=== PATIENT | male | born 1945 | race Hispanic/Latino ===

== ENCOUNTER → 2020-11-15 | Outpatient (CLI) | payer MEDICARE | END | disposition home or self-care (01) | LOC: SHCH 10:00 | PROVIDERS: ATTEND Internal Medicine | DX: I70.213 Atherosclerosis of native arteries of extremities with intermittent claudication, bilateral legs (principal) | CPT/HCPCS: 93922 ==

== ENCOUNTER 2021-10-15 11:27 | Inpatient (IN) | payer MEDICARE ==
[~2021-10-15] VITALS: Ht 180.3 cm; Wt 91.0 kg
[2021-10-15 13:17] LABS: BASOPHILS % (AUTO) 1.8 % (0.0-5.0); EOSINOPHILS % (AUTO) 3.9 % (0.0-8.0); HEMATOCRIT 39.5 % (42-54); LYMPHOCYTES % (AUTO) 16.2 % (21.0-51.0); MEAN CORPUSCULAR HEMOGLOBIN 29.5 pg (27.0-33.0); MEAN CORPUSCULAR HGB CONC 31.1 g/dL (32.0-36.0); MEAN CORPUSCULAR VOLUME 94.7 fL (79-99); MONOCYTES % (AUTO) 7.6 % (3.0-13.0); NEUTROPHILS % (AUTO) 70.1 % (40.0-77.0); PLATELET COUNT (AUTO) 188 K/uL (130-400); RED BLOOD CELL COUNT(AUTO) 4.17 MIL/uL (4.50-6.20); WHITE BLOOD COUNT (AUTO) 5.7 K/uL (4.8-10.8)
[2021-10-15 13:28] LABS: POTASSIUM 4.6 mmol/L (3.5-5.1)
[2021-10-15 13:42] LABS: ALBUMIN 2.3 g/dL (3.5-5.0); BILIRUBIN,TOTAL 0.6 mg/dL (0.2-1.0); TOTAL PROTEIN, SERUM 6.9 g/dL (6.0-8.3)
[2021-10-15] MEDS ORDERED: LIDOCAINE HCL-MPF 1% 2ML VIAL ONE (13:43)
[2021-10-15] MEDS ORDERED: CEFTRIAXONE 1G VIAL IM ONE (14:00)
[2021-10-15] MEDS ORDERED: FUROSEMIDE 40 MG TABLET PO ONE (14:00)
[2021-10-15] MEDS ORDERED: BUMETANIDE 1MG/4ML VIAL IVP SCH (16:30)
[2021-10-15] MEDS ORDERED: POTASSIUM CHLORIDE 20MEQ/100ML 100 ML IV PRN ×2 (17:30)
[2021-10-15] MEDS ORDERED: ONDANSETRON 4MG INJ IVP PRN (17:30)
[2021-10-15] MEDS ORDERED: DOCUSATE SODIUM 100 MG CAP PO PRN (17:30)
[2021-10-15] MEDS ORDERED: ALBUTEROL 0.083% 2.5 MG/3 ML INH IH PRN (17:30)
[2021-10-15] MEDS ORDERED: CLONIDINE HCL 0.1 MG TABLET PO PRN ×2 (17:30)
[2021-10-15] MEDS ORDERED: LIDOCAINE HCL-MPF 1% 2ML VIAL IV PRN ×2 (17:30)
[2021-10-15] MEDS ORDERED: ACETAMINOPHEN 650 MG SUPPOSITORY RC PRN (17:30)
[2021-10-15 18:26] LABS: ABG BASE EXCESS -2.7 mmol/L (-2.0-3.0); ABG HCO3 20.6 mmol/L (21.0-28.0); ABG OXYGEN SATURATION 97.2 % (95.0-99.0); ABG PCO2 32 mmHg (35-48)
[2021-10-15 18:39] LABS: APPEARANCE,URINE Clear (CLEAR); BILIRUBIN,URINE Negative (NEGATIVE); COLOR,URINE Yellow (YELLOW); GLUCOSE, URINE (UA) Negative (NEGATIVE); KETONES,URINE Negative (NEGATIVE); LEUKOCYTE ESTERASE ,URINE Trace (NEGATIVE); NITRATE,URINE Negative (NEGATIVE); OCCULT BLOOD,URINE Small (NEGATIVE); PH,URINE 5.5 (5.0-8.0); PROTEIN,URINE 300 mg/dL (NEGATIVE); UROBILINOGEN,URINE 0.2 mg/dL (0.2-1.0)
[2021-10-15 18:51] LABS: BACTERIA,URINE Rare /HPF (None Seen); RBC,URINE 0-1 /HPF (0-1); SQUAMOUS EPITHELIAL CELL,UR Few /HPF (0-2)
[2021-10-15 18:52] LABS: HYALINE CASTS, URINE 0-1 /LPF (0-1 /LPF)
[2021-10-15] MEDS: FUROSEMIDE 40MG VIAL IV SCH (18:55)
[2021-10-15] MEDS: INSULIN HUMULIN R 100 UNIT/ML 3ML SQ SCH (20:56)
[2021-10-16 02:12] LABS: AMPHET/METH SCREEN,URINE NEGATIVE (NEGATIVE); BARBITURATE SCREEN, URINE NEGATIVE (NEGATIVE); BENZODIAZEPINES SCREEN,URINE NEGATIVE (NEGATIVE); CANNABINOID SCREEN,URINE NEGATIVE (NEGATIVE); COCAINE SCREEN,URINE POSITIVE (NEGATIVE); OPIATE SCREEN,URINE NEGATIVE (NEGATIVE); PHENCYCLIDINE SCREEN,URINE NEGATIVE (NEGATIVE)
[2021-10-16] MEDS: FUROSEMIDE 40MG VIAL IV SCH ×3 (02:16→16:44)
[2021-10-16 07:15] LABS: HEMATOCRIT 39.1 % (42-54); MEAN CORPUSCULAR HEMOGLOBIN 29.2 pg (27.0-33.0); MEAN CORPUSCULAR HGB CONC 31.2 g/dL (32.0-36.0); MEAN CORPUSCULAR VOLUME 93.5 fL (79-99); RED BLOOD CELL COUNT(AUTO) 4.18 MIL/uL (4.50-6.20); WHITE BLOOD COUNT (AUTO) 6.6 K/uL (4.8-10.8)
[2021-10-16 07:23] LABS: HEMOGLOBIN A1C 7.6 % (4.0-6.0)
[2021-10-16] MEDS: INSULIN HUMULIN R 100 UNIT/ML 3ML SQ SCH ×4 (07:30→20:14)
[2021-10-16 07:36] LABS: CREATININE 1.1 mg/dL (0.5-1.5); MAGNESIUM 1.5 mg/dL (1.80-2.40); PHOSPHORUS 3.3 mg/dL (2.5-4.9); POTASSIUM 3.5 mmol/L (3.5-5.1); THYROID STIMULATING HORMONE 40.86 uIU/mL (0.36-3.74)
[2021-10-16 09:00] VITALS: BP 136/91
[2021-10-16] MEDS ORDERED: MAGNESIUM 2GM PREMIX 50ML 50 ML IV PRN ×2 (09:00→11:00)
[2021-10-16] MEDS ORDERED: CLINDAMYCIN IVPB 300MG/50ML 50 ML IV SCH ×2 (09:00→20:00)
[2021-10-16] MEDS: POLYETHYLENE GLYCOL 3350 17 GM POWD.PACK PO SCH (09:00)
[2021-10-16] MEDS: ASPIRIN 81MG CHEW TAB PO SCH (09:34)
[2021-10-16] MEDS: PANTOPRAZOLE 40 MG TAB DR PO SCH (09:34)
[2021-10-16] MEDS: ACETAMINOPHEN 325 MG TAB PO PRN (10:08)
[2021-10-16] MEDS ORDERED: LEVOTHYROXINE 50 MCG TABLET PO SCH (10:49)
[2021-10-16] MEDS: KCL 20 MEQ ERTAB PO PRN (10:52)
[2021-10-16 11:00] VITALS: BP 139/81
[2021-10-16] MEDS: ENOXAPARIN SODIUM 40 MG/0.4 ML SYRINGE SQ SCH (11:30)
[2021-10-16] MEDS ORDERED: LEVOTHYROXINE 100MCG VIAL IV SCH (11:30)
[2021-10-16] MEDS: LEVOFLOXACIN 500 MG/D5W 100 ML 100 ML IV SCH (11:55)
[2021-10-16 16:56] VITALS: BP 137/87
[2021-10-16 20:09] VITALS: BP 135/75
[2021-10-17] VITALS (7 sets, daily range): BP systolic 121–145; BP diastolic 70–83
[2021-10-17] MEDS: FUROSEMIDE 40MG VIAL IV SCH ×3 (01:43→17:09)
[2021-10-17] MEDS: CLINDAMYCIN IVPB 300MG/50ML 50 ML IV SCH ×3 (05:23→20:39)
[2021-10-17] MEDS: LEVOTHYROXINE 50 MCG TABLET PO SCH (05:23)
[2021-10-17] MEDS: INSULIN HUMULIN R 100 UNIT/ML 3ML SQ SCH ×4 (05:43→20:39)
[2021-10-17] MEDS: LEVOFLOXACIN 500 MG/D5W 100 ML 100 ML IV SCH (09:52)
[2021-10-17] MEDS: ENOXAPARIN SODIUM 40 MG/0.4 ML SYRINGE SQ SCH (09:53)
[2021-10-17] MEDS: ASPIRIN 81MG CHEW TAB PO SCH (09:53)
[2021-10-17] MEDS: PANTOPRAZOLE 40 MG TAB DR PO SCH (09:53)
[2021-10-17] MEDS: POLYETHYLENE GLYCOL 3350 17 GM POWD.PACK PO SCH (10:49)
[2021-10-17] MEDS ORDERED: TAMSULOSIN HCL 0.4 MG CAP.ER.24H PO SCH (13:00)
[2021-10-17 13:05] LABS: CREATININE 1.3 mg/dL (0.5-1.5); POTASSIUM 4.5 mmol/L (3.5-5.1)
[2021-10-17] MEDS: HONEY 1 APPL/ML TUBE TP SCH (18:47)
[2021-10-18] MEDS: FUROSEMIDE 40MG VIAL IV SCH ×3 (03:09→16:51)
[2021-10-18] MEDS: ACETAMINOPHEN 325 MG TAB PO PRN (03:09)
[2021-10-18 03:47] VITALS: BP 125/59
[2021-10-18 04:24] LABS: CREATININE 1.2 mg/dL (0.5-1.5); POTASSIUM 3.4 mmol/L (3.5-5.1)
[2021-10-18] MEDS: CLINDAMYCIN IVPB 300MG/50ML 50 ML IV SCH ×3 (06:17→22:00)
[2021-10-18] MEDS: LEVOTHYROXINE 50 MCG TABLET PO SCH (06:17)
[2021-10-18] MEDS: POTASSIUM CHLORIDE 10% ELIXIR 20 MEQ/15 ML UDCUP PO PRN (06:17)
[2021-10-18] MEDS: INSULIN HUMULIN R 100 UNIT/ML 3ML SQ SCH ×4 (07:00→21:00)
[2021-10-18 07:51] VITALS: BP 132/87
[2021-10-18] MEDS: LEVOFLOXACIN 500 MG/D5W 100 ML 100 ML IV SCH (08:48)
[2021-10-18] MEDS: PANTOPRAZOLE 40 MG TAB DR PO SCH (08:48)
[2021-10-18] MEDS: ASPIRIN 81MG CHEW TAB PO SCH (08:49)
[2021-10-18] MEDS: ENOXAPARIN SODIUM 40 MG/0.4 ML SYRINGE SQ SCH (08:49)
[2021-10-18] MEDS: KCL 20 MEQ ERTAB PO PRN (08:51)
[2021-10-18] MEDS: HONEY 1 APPL/ML TUBE TP SCH (08:53)
[2021-10-18] MEDS: POLYETHYLENE GLYCOL 3350 17 GM POWD.PACK PO SCH (09:51)
[2021-10-18 11:31] VITALS: BP 124/70
[2021-10-18 15:41] VITALS: BP 135/82
[2021-10-18 20:24] VITALS: BP 131/78
[2021-10-18 23:40] VITALS: BP 130/79
[2021-10-19] VITALS (7 sets, daily range): BP systolic 126–148; BP diastolic 68–82
[2021-10-19] MEDS: FUROSEMIDE 40MG VIAL IV SCH ×3 (02:23→16:40)
[2021-10-19] MEDS: CLINDAMYCIN IVPB 300MG/50ML 50 ML IV SCH ×3 (06:18→21:53)
[2021-10-19] MEDS: LEVOTHYROXINE 50 MCG TABLET PO SCH (06:18)
[2021-10-19] MEDS: INSULIN HUMULIN R 100 UNIT/ML 3ML SQ SCH ×4 (07:03→21:00)
[2021-10-19] MEDS: POLYETHYLENE GLYCOL 3350 17 GM POWD.PACK PO SCH (07:31)
[2021-10-19] MEDS: HONEY 1 APPL/ML TUBE TP SCH (07:32)
[2021-10-19] MEDS: ENOXAPARIN SODIUM 40 MG/0.4 ML SYRINGE SQ SCH (07:32)
[2021-10-19] MEDS: PANTOPRAZOLE 40 MG TAB DR PO SCH (07:32)
[2021-10-19] MEDS: LEVOFLOXACIN 500 MG/D5W 100 ML 100 ML IV SCH (07:32)
[2021-10-19] MEDS: ASPIRIN 81MG CHEW TAB PO SCH (07:33)
[2021-10-19] MEDS: KCL 20 MEQ ERTAB PO PRN (09:33)
[2021-10-20] MEDS: FUROSEMIDE 40MG VIAL IV SCH ×3 (01:40→17:24)
[2021-10-20 04:40] VITALS: BP 128/65
[2021-10-20 04:52] LABS: POTASSIUM 3.2 mmol/L (3.5-5.1)
[2021-10-20] MEDS: POTASSIUM CHLORIDE 10% ELIXIR 20 MEQ/15 ML UDCUP PO PRN (06:10)
[2021-10-20] MEDS: CLINDAMYCIN IVPB 300MG/50ML 50 ML IV SCH ×3 (06:10→22:39)
[2021-10-20] MEDS: LEVOTHYROXINE 50 MCG TABLET PO SCH (06:11)
[2021-10-20] MEDS: INSULIN HUMULIN R 100 UNIT/ML 3ML SQ SCH ×4 (06:11→20:24)
[2021-10-20] MEDS: KCL 20 MEQ ERTAB PO PRN ×2 (08:01→17:25)
[2021-10-20] MEDS: PANTOPRAZOLE 40 MG TAB DR PO SCH (08:01)
[2021-10-20] MEDS: ASPIRIN 81MG CHEW TAB PO SCH (08:01)
[2021-10-20] MEDS: POLYETHYLENE GLYCOL 3350 17 GM POWD.PACK PO SCH (08:01)
[2021-10-20] MEDS: ENOXAPARIN SODIUM 40 MG/0.4 ML SYRINGE SQ SCH (08:01)
[2021-10-20] MEDS: HONEY 1 APPL/ML TUBE TP SCH (08:02)
[2021-10-20] MEDS: LEVOFLOXACIN 500 MG/D5W 100 ML 100 ML IV SCH (08:02)
[2021-10-20 08:59] VITALS: BP 129/76
[2021-10-20 12:29] VITALS: BP 138/76
[2021-10-20 16:30] VITALS: BP 139/89
[2021-10-20 19:00] VITALS: BP 144/86
[2021-10-20 23:00] VITALS: BP 148/85
[2021-10-21] MEDS: FUROSEMIDE 40MG VIAL IV SCH ×3 (01:40→17:54)
[2021-10-21 03:00] VITALS: BP 136/79
[2021-10-21] MEDS: CLINDAMYCIN IVPB 300MG/50ML 50 ML IV SCH ×3 (05:57→22:00)
[2021-10-21] MEDS: LEVOTHYROXINE 50 MCG TABLET PO SCH (06:03)
[2021-10-21 06:06] LABS: BASOPHILS % (AUTO) 1.2 % (0.0-5.0); EOSINOPHILS % (AUTO) 7.8 % (0.0-8.0); HEMATOCRIT 38.8 % (42-54); LYMPHOCYTES % (AUTO) 17.9 % (21.0-51.0); MEAN CORPUSCULAR HEMOGLOBIN 29.3 pg (27.0-33.0); MEAN CORPUSCULAR HGB CONC 31.4 g/dL (32.0-36.0); MONOCYTES % (AUTO) 8.7 % (3.0-13.0); NEUTROPHILS % (AUTO) 64.3 % (40.0-77.0); PLATELET COUNT (AUTO) 177 K/uL (130-400); RED BLOOD CELL COUNT(AUTO) 4.17 MIL/uL (4.50-6.20); WHITE BLOOD COUNT (AUTO) 7.3 K/uL (4.8-10.8)
[2021-10-21 06:19] LABS: POTASSIUM 3.9 mmol/L (3.5-5.1)
[2021-10-21 07:00] VITALS: BP 140/79
[2021-10-21] MEDS: INSULIN HUMULIN R 100 UNIT/ML 3ML SQ SCH ×4 (07:14→21:00)
[2021-10-21] MEDS ORDERED: 0.9%NACL 50ML 50 ML IV ONE (09:13)
[2021-10-21] MEDS: ASPIRIN 81MG CHEW TAB PO SCH (09:17)
[2021-10-21] MEDS: ENOXAPARIN SODIUM 40 MG/0.4 ML SYRINGE SQ SCH (09:17)
[2021-10-21] MEDS: PANTOPRAZOLE 40 MG TAB DR PO SCH (09:18)
[2021-10-21] MEDS: POLYETHYLENE GLYCOL 3350 17 GM POWD.PACK PO SCH (09:18)
[2021-10-21] MEDS: LEVOFLOXACIN 500 MG/D5W 100 ML 100 ML IV SCH (09:18)
[2021-10-21 11:00] VITALS: BP 133/78
[2021-10-21] MEDS: HONEY 1 APPL/ML TUBE TP SCH (15:51)
[2021-10-21 16:00] VITALS: BP 137/75
[2021-10-21 20:23] VITALS: BP 128/75
[2021-10-22] VITALS (7 sets, daily range): BP systolic 126–138; BP diastolic 71–88
[2021-10-22] MEDS: FUROSEMIDE 40MG VIAL IV SCH ×3 (01:34→16:35)
[2021-10-22 03:31] LABS: MEAN CORPUSCULAR HEMOGLOBIN 29.8 pg (27.0-33.0); MEAN CORPUSCULAR HGB CONC 32.5 g/dL (32.0-36.0); MEAN CORPUSCULAR VOLUME 91.6 fL (79-99); RED BLOOD CELL COUNT(AUTO) 3.93 MIL/uL (4.50-6.20)
[2021-10-22 03:38] LABS: CREATININE 1.1 mg/dL (0.5-1.5); POTASSIUM 3.6 mmol/L (3.5-5.1)
[2021-10-22] MEDS: POTASSIUM CHLORIDE 10% ELIXIR 20 MEQ/15 ML UDCUP PO PRN ×2 (04:54→05:42)
[2021-10-22] MEDS: ACETAMINOPHEN 325 MG TAB PO PRN ×2 (04:57→09:08)
[2021-10-22] MEDS: CLINDAMYCIN IVPB 300MG/50ML 50 ML IV SCH ×2 (05:16→16:35)
[2021-10-22] MEDS: LEVOTHYROXINE 50 MCG TABLET PO SCH (05:58)
[2021-10-22] MEDS: INSULIN HUMULIN R 100 UNIT/ML 3ML SQ SCH ×4 (06:29→20:50)
[2021-10-22] MEDS: PANTOPRAZOLE 40 MG TAB DR PO SCH (08:45)
[2021-10-22] MEDS: LEVOFLOXACIN 500 MG/D5W 100 ML 100 ML IV SCH (08:45)
[2021-10-22] MEDS: ASPIRIN 81MG CHEW TAB PO SCH (08:45)
[2021-10-22] MEDS: POLYETHYLENE GLYCOL 3350 17 GM POWD.PACK PO SCH (08:46)
[2021-10-22] MEDS: HONEY 1 APPL/ML TUBE TP SCH (08:46)
[2021-10-22] MEDS: ENOXAPARIN SODIUM 40 MG/0.4 ML SYRINGE SQ SCH (08:46)
[2021-10-23] MEDS: CLINDAMYCIN IVPB 300MG/50ML 50 ML IV SCH ×2 (00:42→07:04)
[2021-10-23] MEDS: FUROSEMIDE 40MG VIAL IV SCH ×2 (00:42→07:04)
[2021-10-23 03:23] VITALS: BP 131/79
[2021-10-23] MEDS: LEVOTHYROXINE 50 MCG TABLET PO SCH (06:29)
[2021-10-23] MEDS: INSULIN HUMULIN R 100 UNIT/ML 3ML SQ SCH ×4 (06:37→21:00)
[2021-10-23] MEDS: POLYETHYLENE GLYCOL 3350 17 GM POWD.PACK PO SCH (07:00)
[2021-10-23] MEDS: ENOXAPARIN SODIUM 40 MG/0.4 ML SYRINGE SQ SCH (07:00)
[2021-10-23] MEDS: PANTOPRAZOLE 40 MG TAB DR PO SCH (07:04)
[2021-10-23] MEDS: LEVOFLOXACIN 500 MG/D5W 100 ML 100 ML IV SCH (07:04)
[2021-10-23] MEDS: HONEY 1 APPL/ML TUBE TP SCH (07:05)
[2021-10-23] MEDS: ASPIRIN 81MG CHEW TAB PO SCH (07:05)
[2021-10-23 08:00] VITALS: BP 127/76
[2021-10-23 12:09] VITALS: BP 126/72
[2021-10-23] MEDS ORDERED: LEVOFLOXACIN 750 MG TABLET PO SCH (12:25)
[2021-10-23] MEDS: CLINDAMYCIN 150 MG CAP PO SCH ×2 (13:09→21:33)
[2021-10-23 15:33] VITALS: BP 126/81
[2021-10-23] MEDS: FUROSEMIDE 40 MG TABLET PO SCH (16:51)
[2021-10-23 19:00] VITALS: BP 121/85
[2021-10-23 23:00] VITALS: BP 126/79
[2021-10-24 03:00] VITALS: BP 118/66
[2021-10-24] MEDS: INSULIN HUMULIN R 100 UNIT/ML 3ML SQ SCH (06:31)
[2021-10-24] MEDS: CLINDAMYCIN 150 MG CAP PO SCH (06:42)
[2021-10-24] MEDS: LEVOTHYROXINE 50 MCG TABLET PO SCH (06:42)
[2021-10-24] MEDS: POLYETHYLENE GLYCOL 3350 17 GM POWD.PACK PO SCH (06:58)
[2021-10-24] MEDS: ENOXAPARIN SODIUM 40 MG/0.4 ML SYRINGE SQ SCH (06:58)
[2021-10-24] MEDS: ASPIRIN 81MG CHEW TAB PO SCH (06:59)
[2021-10-24] MEDS: PANTOPRAZOLE 40 MG TAB DR PO SCH (06:59)
[2021-10-24] MEDS: FUROSEMIDE 40 MG TABLET PO SCH (07:00)
[2021-10-24] MEDS: HONEY 1 APPL/ML TUBE TP SCH (07:00)
[2021-10-24] MEDS ORDERED: LEVOFLOXACIN 750 MG TABLET PO SCH (07:30)
[2021-10-24 08:00] VITALS: BP 110/59
[2021-10-24] MEDS ORDERED: DICL100G27 TP (09:43)
[2021-10-24] MEDS ORDERED: CLIN-26 PO (09:43)
[2021-10-24] MEDS ORDERED: SITA100T12 PO (09:43)
[2021-10-24] MEDS ORDERED: FURO40TA5 PO (09:43)
[2021-10-24] MEDS ORDERED: FURO20TA4 PO (09:43)
[2021-10-24] MEDS ORDERED: TAMSULOSIN PO (09:43)
[2021-10-24] MEDS ORDERED: AMOX1TAB15 PO (09:43)
[2021-10-24] MEDS ORDERED: ASPI-1443 PO (09:43)
== END 2021-10-24 13:24 | disposition home or self-care (01) | DRG 291 ==
LOC: EDH 11:27 → EDHIP 17:26 → 2DH 10-16 09:20
PROVIDERS: ADMIT Internal Medicine; ATTEND Internal Medicine
DX: I11.0 Hypertensive heart disease with heart failure (principal); I50.23 Acute on chronic systolic (congestive) heart failure; E44.0 Moderate protein-calorie malnutrition; L97.919 Non-pressure chronic ulcer of unspecified part of right lower leg with unspecified severity; L97.929 Non-pressure chronic ulcer of unspecified part of left lower leg with unspecified severity; E11.9 Type 2 diabetes mellitus without complications; E78.5 Hyperlipidemia, unspecified; E03.9 Hypothyroidism, unspecified; E78.00 Pure hypercholesterolemia, unspecified; N50.89 Other specified disorders of the male genital organs; F12.10 Cannabis abuse, uncomplicated; I83.029 Varicose veins of left lower extremity with ulcer of unspecified site; I83.019 Varicose veins of right lower extremity with ulcer of unspecified site; F14.10 Cocaine abuse, uncomplicated; Z20.822 Contact with and (suspected) exposure to COVID-19; I87.8 Other specified disorders of veins; Z68.28 Body mass index [BMI] 28.0-28.9, adult; Z79.84 Long term (current) use of oral hypoglycemic drugs; Z74.01 Bed confinement status; Z88.8 Allergy status to other drugs, medicaments and biological substances; Z91.19 Patient's noncompliance with other medical treatment and regimen
CPT/HCPCS: 36415; 36600; 71045; 76700; 80048; 80053; 80305; 81001; 82550; 82803; 82948; 83036; 83735; 83874; 83880; 84100; 84132; 84443; 84484; 85025; 85027; 85378; 87635; 93005; 93306; 93356; 93970; C9803; G0378; J0696; J1650; J1815; J1940; J1956; J3475; J3490

== ENCOUNTER 2021-12-01 05:51 | Observation (INO) | payer MEDICARE ==
[~2021-12-01] VITALS: Ht 180.3 cm; Wt 78.0 kg
[~2021-12-01 05:51] MED LIST: ASPI-1443 PO; DICL100G27 TP; FURO40TA5 PO; SITA100T12 PO; TAMSULOSIN PO
[2021-12-01 06:32] LABS: BASOPHILS % (AUTO) 0.6 % (0.0-5.0); EOSINOPHILS % (AUTO) 2.5 % (0.0-8.0); HEMATOCRIT 40.4 % (42-54); LYMPHOCYTES % (AUTO) 11.8 % (21.0-51.0); MEAN CORPUSCULAR HEMOGLOBIN 28.1 pg (27.0-33.0); MEAN CORPUSCULAR HGB CONC 32.2 g/dL (32.0-36.0); MEAN CORPUSCULAR VOLUME 87.3 fL (79-99); MONOCYTES % (AUTO) 6.9 % (3.0-13.0); NEUTROPHILS % (AUTO) 77.9 % (40.0-77.0); PLATELET COUNT (AUTO) 226 K/uL (130-400); RED BLOOD CELL COUNT(AUTO) 4.63 MIL/uL (4.50-6.20); WHITE BLOOD COUNT (AUTO) 7.1 K/uL (4.8-10.8)
[2021-12-01 06:37] LABS: APPEARANCE,URINE CLEAR (CLEAR); BILIRUBIN,URINE NEGATIVE (NEGATIVE); COLOR,URINE YELLOW (YELLOW); GLUCOSE, URINE (UA) NEGATIVE (NEGATIVE); KETONES,URINE NEGATIVE (NEGATIVE); LEUKOCYTE ESTERASE ,URINE NEGATIVE (NEGATIVE); NITRATE,URINE NEGATIVE (NEGATIVE); OCCULT BLOOD,URINE SMALL (NEGATIVE); PH,URINE 5.5 (5.0-8.0); PROTEIN,URINE >=300 mg/dL (NEGATIVE); UROBILINOGEN,URINE 0.2 mg/dL (0.2-1.0)
[2021-12-01 06:49] LABS: ALANINE AMINOTRANSFERASE 18 U/L (12-78); ALBUMIN 1.9 g/dL (3.5-5.0); ALCOHOL, BLOOD < 3 mg/dL (0-10); ASPARTATE AMINOTRANSFERASE 32 U/L (10-37); BILIRUBIN,TOTAL 0.4 mg/dL (0.2-1.0); CARBON DIOXIDE 24 mmol/L (21-32); CHLORIDE 97 mmol/L (101-111); CREATININE 1.1 mg/dL (0.5-1.5); GLOMERULAR FILTR. RATE CALC 69 mL/min (>60); LIPASE 168 U/L (114-286); POTASSIUM 3.6 mmol/L (3.5-5.1); SODIUM SERUM 131 mmol/L (136-145); TOTAL PROTEIN, SERUM 8.1 g/dL (6.0-8.3); UREA NITROGEN, BLOOD 41 mg/dL (7-18)
[2021-12-01 06:52] LABS: GLUCOSE,RANDOM 39 mg/dL (70-105)
[2021-12-01] MEDS ORDERED: DEXTROSE 50%-WATER 50 ML DISP.SYRIN IV ONE (06:52)
[2021-12-01 06:55] LABS: BACTERIA,URINE None Seen /HPF (None Seen); RBC,URINE 0-1 /HPF (0-1); SQUAMOUS EPITHELIAL CELL,UR Few /HPF (0-2); WBC,URINE None Seen /HPF (0-1)
[2021-12-01] MEDS ORDERED: DEXTROSE 50%-WATER 50 ML DISP.SYRIN IV SCH (07:00)
[2021-12-01 07:07] LABS: AMPHET/METH SCREEN,URINE NEGATIVE (NEGATIVE); BARBITURATE SCREEN, URINE NEGATIVE (NEGATIVE); BENZODIAZEPINES SCREEN,URINE NEGATIVE (NEGATIVE); CANNABINOID SCREEN,URINE NEGATIVE (NEGATIVE); COCAINE SCREEN,URINE POSITIVE (NEGATIVE); OPIATE SCREEN,URINE NEGATIVE (NEGATIVE); PHENCYCLIDINE SCREEN,URINE NEGATIVE (NEGATIVE)
[2021-12-01 07:25] LABS: B-TYPE NATRIURETIC PEPTIDE 3390 pg/mL (0-100)
[2021-12-01] MEDS ORDERED: DEXTROSE 5%-LACTATED RINGERS 1,000 ML IV ONE (07:27)
[2021-12-01] MEDS: 0.9%NACL 1000ML 1,000 ML IV SCH ×2 (07:30→17:30)
[2021-12-01] MEDS: M.V.I. IV [ADULT] 10 ML, FOLIC ACID 1 MG, THIAMINE HCL 100 MG in 0.9%NACL 1000ML 1,000 ML IV SCH ×2 (07:30→19:19)
[2021-12-01] MEDS: DEXTROSE 5%-LACTATED RINGERS 1,000 ML IV SCH ×2 (07:44→20:01)
[2021-12-01] MEDS ORDERED: ACETAMINOPHEN 325 MG TAB PO PRN ×2 (08:00)
[2021-12-01] MEDS ORDERED: LACTULOSE 20 GM/30 ML UDCUP PO PRN (08:00)
[2021-12-01] MEDS ORDERED: MAG/ALUM/SIMETH 30 ML UDCUP PO PRN (08:00)
[2021-12-01] MEDS ORDERED: ONDANSETRON 4MG INJ IV PRN (08:00)
[2021-12-01] MEDS ORDERED: POTASSIUM CHLORIDE 10% ELIXIR 20 MEQ/15 ML UDCUP PO PRN (08:00)
[2021-12-01] MEDS ORDERED: POTASSIUM CHLORIDE 20MEQ/100ML 100 ML IV PRN (08:00)
[2021-12-01] MEDS ORDERED: GUAIFENESIN-DM 200/20 MG 10 ML PO PRN (08:00)
[2021-12-01] MEDS ORDERED: NITROGLYCERIN 0.4 MG SL TAB SL PRN (08:00)
[2021-12-01] MEDS ORDERED: MAGNESIUM 2GM PREMIX 50ML 50 ML IV PRN (08:00)
[2021-12-01] MEDS ORDERED: GLUCAGON 1MG KIT 1 MG ML IM PRN (08:00)
[2021-12-01] MEDS ORDERED: KCL 20 MEQ ERTAB PO PRN (08:00)
[2021-12-01 09:13] LABS: ABG BASE EXCESS -4.8 mmol/L (-2.0-3.0); ABG HCO3 18.7 mmol/L (21.0-28.0); ABG OXYGEN SATURATION 97.7 % (95.0-99.0); ABG PCO2 31 mmHg (35-48)
[2021-12-01] MEDS: ENOXAPARIN SODIUM 40 MG/0.4 ML SYRINGE SQ SCH (09:48)
[2021-12-01] MEDS: PANTOPRAZOLE 40 MG/VIAL IVP SCH ×3 (09:48→21:02)
[2021-12-01] MEDS ORDERED: VITS42.53 TP (10:35)
[2021-12-01] MEDS ORDERED: BACI3.5O22 OP (10:35)
[2021-12-01] MEDS ORDERED: LEVO500T90 PO (10:35)
[2021-12-01] MEDS: BACITRACIN 28.4 GM OINT TP SCH ×2 (12:26→21:02)
[2021-12-01] MEDS ORDERED: DEXTROSE 5%-WATER 1,000 ML IV ONE (18:13)
[2021-12-01] MEDS: DEXTROSE 50%-WATER 50 ML DISP.SYRIN IV PRN ×2 (18:15→18:58)
[2021-12-01] MEDS: HYDROCORTISONE SOD SUCCINATE 100 MG/2 ML VIAL IV SCH ×2 (20:01→21:00)
[2021-12-01 23:50] VITALS: BP 115/67
[2021-12-02] MEDS ORDERED: DEXTROSE 10%-WATER 1,000 ML IV SCH (00:30)
[2021-12-02 04:00] VITALS: BP 110/60
[2021-12-02 04:56] LABS: BASOPHILS % (AUTO) 0.5 % (0.0-5.0); EOSINOPHILS % (AUTO) 1.7 % (0.0-8.0); HEMATOCRIT 31.7 % (42-54); LYMPHOCYTES % (AUTO) 12.9 % (21.0-51.0); MEAN CORPUSCULAR HEMOGLOBIN 27.9 pg (27.0-33.0); MEAN CORPUSCULAR HGB CONC 32.5 g/dL (32.0-36.0); MEAN CORPUSCULAR VOLUME 85.9 fL (79-99); MONOCYTES % (AUTO) 6.7 % (3.0-13.0); NEUTROPHILS % (AUTO) 77.7 % (40.0-77.0); PLATELET COUNT (AUTO) 206 K/uL (130-400); RED BLOOD CELL COUNT(AUTO) 3.69 MIL/uL (4.50-6.20); RED CELL DISTRIBUTION WIDTH 16.7 % (11.0-15.5); WHITE BLOOD COUNT (AUTO) 6.4 K/uL (4.8-10.8)
[2021-12-02 05:16] LABS: ALBUMIN 1.7 g/dL (3.5-5.0); BILIRUBIN,TOTAL 0.3 mg/dL (0.2-1.0); CREATININE 0.9 mg/dL (0.5-1.5); POTASSIUM 5.2 mmol/L (3.5-5.1); TOTAL PROTEIN, SERUM 7.1 g/dL (6.0-8.3)
[2021-12-02 07:25] VITALS: BP 114/66
[2021-12-02] MEDS: PANTOPRAZOLE 40 MG/VIAL IVP SCH (08:20)
[2021-12-02] MEDS: ENOXAPARIN SODIUM 40 MG/0.4 ML SYRINGE SQ SCH (08:20)
[2021-12-02] MEDS: HYDROCORTISONE SOD SUCCINATE 100 MG/2 ML VIAL IV SCH (08:20)
[2021-12-02] MEDS: BACITRACIN 28.4 GM OINT TP SCH (08:27)
[2021-12-02 11:25] VITALS: BP 111/61
[2021-12-02] MEDS ORDERED: COMPOUND IV REFRIGERATED 1 EACH IVSOLN MISC PRN (12:00)
== END 2021-12-02 15:09 | disposition home or self-care (01) ==
LOC: EDH 05:51 → EDHIP 07:01 → 3CH 23:36
PROVIDERS: ADMIT Internal Medicine; ATTEND Internal Medicine
DX: R41.82 Altered mental status, unspecified (principal); Z20.822 Contact with and (suspected) exposure to COVID-19; E11.649 Type 2 diabetes mellitus with hypoglycemia without coma; I11.0 Hypertensive heart disease with heart failure; I50.9 Heart failure, unspecified; F14.129 Cocaine abuse with intoxication, unspecified; I25.10 Atherosclerotic heart disease of native coronary artery without angina pectoris; I73.9 Peripheral vascular disease, unspecified; I83.009 Varicose veins of unspecified lower extremity with ulcer of unspecified site; F10.129 Alcohol abuse with intoxication, unspecified; E78.00 Pure hypercholesterolemia, unspecified; E78.5 Hyperlipidemia, unspecified; G31.9 Degenerative disease of nervous system, unspecified; R77.8 Other specified abnormalities of plasma proteins; Z53.29 Procedure and treatment not carried out because of patient's decision for other reasons; Z79.82 Long term (current) use of aspirin; Z79.899 Other long term (current) drug therapy; Z98.890 Other specified postprocedural states
CPT/HCPCS: 36415; 36600; 70450; 71045; 80053; 80305; 81001; 82140; 82803; 82948; 83605; 83690; 83880; 84484; 85025; 87040; 87635; 93005; 96361; 96365; 96366; 96372; 96375; 96376; C9113; G0378; J1650; J1720; J3411; J3490; J7030; J7070

== ENCOUNTER 2021-12-22 03:48 | Observation (INO) | payer MEDICARE ==
[~2021-12-22] VITALS: Ht 170.2 cm; Wt 83.9 kg
[~2021-12-22 03:48] MED LIST changes: +BACI3.5O22 OP; +LEVO500T90 PO; -SITA100T12 PO; +VITS42.53 TP
[2021-12-22 04:10] LABS: APPEARANCE,URINE Clear (CLEAR); BILIRUBIN,URINE Negative (NEGATIVE); COLOR,URINE Yellow (YELLOW); GLUCOSE, URINE (UA) Negative (NEGATIVE); KETONES,URINE Negative (NEGATIVE); LEUKOCYTE ESTERASE ,URINE Negative (NEGATIVE); NITRATE,URINE Negative (NEGATIVE); OCCULT BLOOD,URINE Negative (NEGATIVE); PROTEIN,URINE POS 2+ mg/dL (NEGATIVE); UROBILINOGEN,URINE 0.2 mg/dL (0.2-1.0)
[2021-12-22 04:17] LABS: AMPHET/METH SCREEN,URINE NEGATIVE (NEGATIVE); BARBITURATE SCREEN, URINE NEGATIVE (NEGATIVE); BENZODIAZEPINES SCREEN,URINE NEGATIVE (NEGATIVE); CANNABINOID SCREEN,URINE NEGATIVE (NEGATIVE); COCAINE SCREEN,URINE POSITIVE (NEGATIVE); OPIATE SCREEN,URINE NEGATIVE (NEGATIVE); PHENCYCLIDINE SCREEN,URINE NEGATIVE (NEGATIVE)
[2021-12-22] MEDS ORDERED: DEXTROSE 50%-WATER 50 ML DISP.SYRIN IV ONE (04:30)
[2021-12-22 04:45] LABS: BASOPHILS % (AUTO) 0.9 % (0.0-5.0); EOSINOPHILS % (AUTO) 2.2 % (0.0-8.0); HEMATOCRIT 34.3 % (42-54); LYMPHOCYTES % (AUTO) 16.7 % (21.0-51.0); MEAN CORPUSCULAR HEMOGLOBIN 28.3 pg (27.0-33.0); MEAN CORPUSCULAR HGB CONC 31.5 g/dL (32.0-36.0); MONOCYTES % (AUTO) 9.7 % (3.0-13.0); NUCLEATED RED BLOOD CELLS 0.4 % (0.0-0.19); PLATELET COUNT (AUTO) 166 K/uL (130-400); RED BLOOD CELL COUNT(AUTO) 3.81 MIL/uL (4.50-6.20); RED CELL DISTRIBUTION WIDTH 19.5 % (11.0-15.5); WHITE BLOOD COUNT (AUTO) 5.6 K/uL (4.8-10.8)
[2021-12-22 04:52] LABS: POTASSIUM 3.5 mmol/L (3.5-5.1)
[2021-12-22] MEDS ORDERED: DEXTROSE 10%-WATER 1,000 ML IV ONE (05:09)
[2021-12-22] MEDS: DEXTROSE 10%-WATER 1,000 ML IV SCH ×2 (05:19→19:40)
[2021-12-22] MEDS ORDERED: GUAIFENESIN-DM 200/20 MG 10 ML PO PRN (05:30)
[2021-12-22] MEDS ORDERED: LACTULOSE 20 GM/30 ML UDCUP PO PRN (05:30)
[2021-12-22] MEDS ORDERED: ACETAMINOPHEN 325 MG TAB PO PRN ×2 (05:30)
[2021-12-22] MEDS ORDERED: ONDANSETRON 4MG INJ IV PRN (05:30)
[2021-12-22] MEDS ORDERED: NITROGLYCERIN 0.4 MG SL TAB SL PRN (05:30)
[2021-12-22] MEDS ORDERED: ZOLPIDEM TARTRATE 5 MG TAB PO PRN (05:30)
[2021-12-22] MEDS ORDERED: MAG/ALUM/SIMETH 30 ML UDCUP PO PRN (05:30)
[2021-12-22] MEDS ORDERED: POTASSIUM CHLORIDE 20MEQ/100ML 100 ML IV PRN (06:00)
[2021-12-22] MEDS ORDERED: KCL 20 MEQ ERTAB PO PRN (06:00)
[2021-12-22] MEDS ORDERED: MAGNESIUM 2GM PREMIX 50ML 50 ML IV PRN (06:00)
[2021-12-22] MEDS ORDERED: GLUCAGON 1MG KIT 1 MG ML IM PRN (06:00)
[2021-12-22] MEDS ORDERED: DEXTROSE 50%-WATER 50 ML DISP.SYRIN IV PRN (06:00)
[2021-12-22] MEDS: POTASSIUM CHLORIDE 10% ELIXIR 20 MEQ/15 ML UDCUP PO PRN ×2 (08:36→12:51)
[2021-12-22] MEDS: FAMOTIDINE 20MG VIAL IV SCH ×2 (08:37→21:43)
[2021-12-22] MEDS ORDERED: ENOXAPARIN SODIUM 40 MG/0.4 ML SYRINGE SQ SCH (09:00)
[2021-12-22 12:18] LABS: HEMOGLOBIN A1C 7.8 % (4.0-6.0)
[2021-12-22] MEDS ORDERED: ASPIRIN 81 MG EC TAB PO SCH (13:00)
[2021-12-22 21:50] VITALS: BP 137/72
[2021-12-23] VITALS: BP 143/84
[2021-12-23 04:00] VITALS: BP 119/73
[2021-12-23 04:41] LABS: BASOPHILS % (AUTO) 1.7 % (0.0-5.0); EOSINOPHILS % (AUTO) 12.5 % (0.0-8.0); HEMATOCRIT 36.4 % (42-54); LYMPHOCYTES % (AUTO) 23.2 % (21.0-51.0); MEAN CORPUSCULAR HEMOGLOBIN 28.4 pg (27.0-33.0); MEAN CORPUSCULAR VOLUME 91.5 fL (79-99); MONOCYTES % (AUTO) 7.9 % (3.0-13.0); NEUTROPHILS % (AUTO) 54.1 % (40.0-77.0); PLATELET COUNT (AUTO) 181 K/uL (130-400); RED BLOOD CELL COUNT(AUTO) 3.98 MIL/uL (4.50-6.20); RED CELL DISTRIBUTION WIDTH 20.2 % (11.0-15.5); WHITE BLOOD COUNT (AUTO) 5.4 K/uL (4.8-10.8)
[2021-12-23 05:04] LABS: ALBUMIN 1.8 g/dL (3.5-5.0); BILIRUBIN,TOTAL 0.4 mg/dL (0.2-1.0); POTASSIUM 4.4 mmol/L (3.5-5.1)
[2021-12-23] MEDS ORDERED: LEVOFLOXACIN 500 MG TABLET PO SCH (09:00)
== END 2021-12-23 18:45 | disposition left against medical advice (07) ==
LOC: EDH 03:48 → EDHIP 06:22 → 3BH 22:30 → 3DH 12-23 05:30
PROVIDERS: ADMIT Internal Medicine; ATTEND Internal Medicine
DX: E11.649 Type 2 diabetes mellitus with hypoglycemia without coma (principal); F14.10 Cocaine abuse, uncomplicated; L03.115 Cellulitis of right lower limb; L03.116 Cellulitis of left lower limb; E87.1 Hypo-osmolality and hyponatremia; I11.0 Hypertensive heart disease with heart failure; I50.22 Chronic systolic (congestive) heart failure; E78.5 Hyperlipidemia, unspecified; E03.9 Hypothyroidism, unspecified; I27.20 Pulmonary hypertension, unspecified; Z91.14 Patient's other noncompliance with medication regimen; Z91.19 Patient's noncompliance with other medical treatment and regimen; Z79.899 Other long term (current) drug therapy; Z79.82 Long term (current) use of aspirin; E78.00 Pure hypercholesterolemia, unspecified; F10.10 Alcohol abuse, uncomplicated; I83.019 Varicose veins of right lower extremity with ulcer of unspecified site; I83.029 Varicose veins of left lower extremity with ulcer of unspecified site
CPT/HCPCS: 36415 ×2; 80048; 80053; 80305; 81003; 82947; 82948 ×19; 83036; 84443; 85025 ×2; 96372; 96374; 96375; 96376; 99291; G0378 ×37; J1650; J3490 ×4